=== PATIENT | female | born 1970 | race African-American/Black ===

== ENCOUNTER 2021-09-26 11:37 | Inpatient (IN) ==
[2021-09-26] MEDS ORDERED: ASPIRIN 325 MG TABLET PO STA (15:05)
[2021-09-26] MEDS ORDERED: SODIUM CHLORIDE 0.9% 1,000 ML IV STA (15:05)
[2021-09-26 15:35] LABS: Basophils % 0.3 % (0.0-0.8); Eosinophils % 0.1 % (0.00-10.9); Hematocrit 36.6 VOL% (35.7-47.0); Hemoglobin 12.2 GM/DL (12.0-16.0); Immature Granulocytes % 0.4 %; Immature Granulocytes Absolute 0.03 #; Lymphocytes # 1.5 10*3/uL (1.4-4.0); Lymphocytes % 21.7 % (21.3-54.2); Mean Corpuscular HGB Conc 33.3 GM/DL (32-36); Mean Corpuscular Volume 96.1 FL (87-102); Mean Platelet Volume 11.2 FL (9.6-12.0); Monocytes % 6.6 % (1.7-12.7); Neutrophils % 70.9 % (38.7-73.9); Platelet Count 278 T/CUMM (130-400); Red Blood Count 3.81 MC/CUMM (3.8-5.5); Red Cell Distribution Width 12.9 % (9.3-17.3); White Blood Count 7.1 T/CUMM (4-12)
[2021-09-26 16:01] LABS: Osmolality,Calculated 269.5 MOS/KG (273-304); Potassium 5.6 MMOL/L (3.5-5.1)
[2021-09-26 16:09] LABS: Calcium 17.7 MG/DL (8.5-10.1)
[2021-09-26] MEDS ORDERED: GLUCAGON 1 MG VIAL IM PRN (17:39)
[2021-09-26] MEDS ORDERED: DEXTROSE 10% 250 ML BAG IV PRN (17:39)
[2021-09-26] MEDS ORDERED: SODIUM ZIRCONIUM CYCLOSILICATE 10 GM PACK PO ONE (17:43)
[2021-09-26] MEDS ORDERED: FLUCONAZOLE 200 MG TABLET PO STA (17:50)
[2021-09-26 17:57] LABS: Bilirubin,Urine Negative (Negative); Blood, Urine Small mg/dL (Negative); Glucose,Urine (UA) Negative (Negative); Hyaline Casts,Urine 78 /LPF (0-3); Ketones,Urine 5 mg/dL (Negative); Mucus,Urine Few /LPF (Occasional); Nitrite,Urine Negative (Negative); Protein,Urine 100 MG/DL; RBC,Urine 8 /HPF (0-4); Squamous Epithelial Cell,Urine Many /HPF (0-10); Urine Appearance CLOUDY (Clear); Urine Color Yellow (Yellow); Urine Specific Gravity 1.013 (1.001-1.035); Urine Urobilinogen < 2.0 EU/DL (<2.0)
[2021-09-26] MEDS ORDERED: CALCITONIN 400 UNIT/2 ML VIAL IM SCH (18:00)
[2021-09-26] MEDS: SODIUM CHLORIDE 0.45% 1,000 ML IV SCH (19:31)
[2021-09-26] MEDS ORDERED: HEPARIN 5,000 UNIT/1 ML VIAL SUBCUT SCH (21:00)
[2021-09-26] MEDS: methylPREDNISolone SOD SUC 40 MG/1 ML VIAL IV SCH (21:05)
[2021-09-26] MEDS: cefTRIAXone 1,000 MG in SODIUM CHLORIDE 0.9% 100 ML IV SCH (22:15)
[2021-09-26] MEDS: ENOXAPARIN 80 MG/0.8 ML SYRINGE SUBCUT SCH (22:15)
[2021-09-27 05:49] LABS: Hematocrit 32.2 VOL% (35.7-47.0); Hemoglobin 10.9 GM/DL (12.0-16.0); Immature Granulocytes % 0.5 %; Immature Granulocytes Absolute 0.04 #; Lymphocytes # 0.7 10*3/uL (1.4-4.0); Lymphocytes % 8.5 % (21.3-54.2); Mean Corpuscular HGB Conc 33.9 GM/DL (32-36); Mean Platelet Volume 10.9 FL (9.6-12.0); Monocytes % 0.6 % (1.7-12.7); Neutrophils % 90.4 % (38.7-73.9); Platelet Count 250 T/CUMM (130-400); Red Blood Count 3.39 MC/CUMM (3.8-5.5); Red Cell Distribution Width 13.1 % (9.3-17.3); White Blood Count 7.9 T/CUMM (4-12)
[2021-09-27 06:11] LABS: Alanine Aminotransferase 14 U/L (13-56); Albumin 3.5 G/DL (3.4-5.0); Alkaline Phosphatase 65 U/L (45-117); Aspartate Amino Transferase 15 U/L (0-37); Blood Urea Nitrogen 31 MG/DL (7-18); Carbon Dioxide 22 MMOL/L (21-32); Estimated Glom Filtration Rate 14 ML/MIN; Glucose 139 MG/DL (74-106); Osmolality,Calculated 274.4 MOS/KG (273-304); Potassium 5.1 MMOL/L (3.5-5.1); Sodium 133 MMOL/L (136-145); Thyroid Stimulating Hormone < 0.005 uIU/ml (0.358-3.74)
[2021-09-27 06:17] LABS: Calcium 15.5 MG/DL (8.5-10.1)
[2021-09-27 06:40] LABS: Parathyroid Hormone Intact < 6.3 PG/ML (18.4-80.1)
[2021-09-27] MEDS: hydrALAZINE 10 MG TABLET PO SCH ×2 (10:45→20:40)
[2021-09-27] MEDS: FLUCONAZOLE 200 MG TABLET PO SCH (10:45)
[2021-09-27] MEDS: methylPREDNISolone SOD SUC 40 MG/1 ML VIAL IV SCH ×2 (10:45→20:41)
[2021-09-27] MEDS: CALCITONIN 400 UNIT/2 ML VIAL SUBCUT SCH ×2 (10:46→20:41)
[2021-09-27] MEDS: PANTOPRAZOLE 40 MG TABLET PO SCH (10:47)
[2021-09-27] MEDS: ENOXAPARIN 80 MG/0.8 ML SYRINGE SUBCUT SCH (20:41)
[2021-09-28] MEDS: SODIUM CHLORIDE 0.45% 1,000 ML IV SCH ×3 (00:39→10:43)
[2021-09-28] MEDS ORDERED: cefTRIAXone 1,000 MG VIAL IM ONE (00:58)
[2021-09-28] MEDS: cefTRIAXone 1,000 MG in SODIUM CHLORIDE 0.9% 100 ML IV SCH (00:59)
[2021-09-28 05:37] LABS: Alanine Aminotransferase 14 U/L (13-56); Alkaline Phosphatase 70 U/L (45-117); Aspartate Amino Transferase 13 U/L (0-37); Bilirubin,Total < 0.39 MG/DL (0.20-1.00); Blood Urea Nitrogen 37 MG/DL (7-18); Carbon Dioxide 22 MMOL/L (21-32); Estimated Glom Filtration Rate 16 ML/MIN; Glucose 155 MG/DL (74-106); Potassium 3.8 MMOL/L (3.5-5.1); Sodium 136 MMOL/L (136-145); Total Protein 8.6 G/DL (6.4-8.2)
[2021-09-28 05:40] LABS: Calcium 14.6 MG/DL (8.5-10.1)
[2021-09-28 05:42] LABS: Basophils % 0.1 % (0.0-0.8); Hematocrit 32.8 VOL% (35.7-47.0); Immature Granulocytes Absolute 0.26 #; Lymphocytes # 0.7 10*3/uL (1.4-4.0); Lymphocytes % 2.4 % (21.3-54.2); Mean Corpuscular HGB Conc 36.6 GM/DL (32-36); Mean Platelet Volume 11.8 FL (9.6-12.0); Monocytes % 1.2 % (1.7-12.7); Neutrophils % 95.3 % (38.7-73.9); Platelet Count 292 T/CUMM (130-400); Red Blood Count 3.38 MC/CUMM (3.8-5.5); Red Cell Distribution Width 14.3 % (9.3-17.3)
[2021-09-28 05:55] LABS: Free T4 (Free Thyroxine) 1.25 NG/DL (0.76-1.46)
[2021-09-28 06:08] LABS: White Blood Count 27.1 T/CUMM (4-12)
[2021-09-28 06:16] LABS: Band Neutrophils 1 % (0-10); Hypochromia 1+; Lymphocytes 3 % (20-55); Segmented Neutrophils 94 % (50-85); Total Cells Counted 100
[2021-09-28 06:17] LABS: Microcytosis 1+; Ovalocytes Slight; Platelet Estimate Normal
[2021-09-28] MEDS ORDERED: INFLUENZA VIRUS VACCINE 0.5 ML SYRINGE IM ONE (09:00)
[2021-09-28] MEDS: PANTOPRAZOLE 40 MG TABLET PO SCH (10:45)
[2021-09-28] MEDS: hydrALAZINE 10 MG TABLET PO SCH ×2 (10:45→20:24)
[2021-09-28] MEDS: FLUCONAZOLE 200 MG TABLET PO SCH (10:45)
[2021-09-28] MEDS: CALCITONIN 400 UNIT/2 ML VIAL SUBCUT SCH ×2 (10:46→20:31)
[2021-09-28] MEDS ORDERED: MAGNESIUM CITRATE 300 ML BOTTLE PO ONE (15:48)
[2021-09-28] MEDS: ASPIRIN EC 81 MG TABLET PO SCH (17:10)
[2021-09-28] MEDS: ENOXAPARIN 30 MG/0.3 ML SYRINGE SUBCUT SCH (20:24)
[2021-09-28] MEDS: levETIRAcetam 500 MG TABLET PO SCH (20:24)
[2021-09-28] MEDS: DOCUSATE SODIUM 100 MG CAPSULE PO SCH (20:24)
[2021-09-29 08:12] LABS: Alanine Aminotransferase 13 U/L (13-56); Albumin 3.2 G/DL (3.4-5.0); Alkaline Phosphatase 56 U/L (45-117); Aspartate Amino Transferase 14 U/L (0-37); Bilirubin,Total < 0.39 MG/DL (0.20-1.00); Blood Urea Nitrogen 36 MG/DL (7-18); Calcium 10.8 MG/DL (8.5-10.1); Carbon Dioxide 21 MMOL/L (21-32); Estimated Glom Filtration Rate 22 ML/MIN; Glucose 94 MG/DL (74-106); Osmolality,Calculated 280.8 MOS/KG (273-304); Potassium 3.6 MMOL/L (3.5-5.1); Sodium 137 MMOL/L (136-145); Total Protein 7.1 G/DL (6.4-8.2)
[2021-09-29] MEDS: DOCUSATE SODIUM 100 MG CAPSULE PO SCH ×2 (08:26→20:31)
[2021-09-29] MEDS: PANTOPRAZOLE 40 MG TABLET PO SCH (08:26)
[2021-09-29] MEDS: FLUCONAZOLE 200 MG TABLET PO SCH (08:26)
[2021-09-29] MEDS: hydrALAZINE 10 MG TABLET PO SCH ×2 (08:26→20:31)
[2021-09-29] MEDS: LINACLOTIDE 145 MCG CAPSULE PO SCH (08:26)
[2021-09-29] MEDS: levETIRAcetam 500 MG TABLET PO SCH ×2 (08:26→20:31)
[2021-09-29] MEDS: POLYETHYLENE GLYCOL POWDER 17 GM PACK PO SCH (08:27)
[2021-09-29] MEDS: ASPIRIN EC 81 MG TABLET PO SCH (08:27)
[2021-09-29 12:47] LABS: Hematocrit 26.6 VOL% (35.7-47.0); Mean Corpuscular HGB Conc 37.6 GM/DL (32-36); Mean Corpuscular Volume 98.2 FL (87-102); Platelet Count 223 T/CUMM (130-400); Red Blood Count 2.71 MC/CUMM (3.8-5.5); Red Cell Distribution Width 16.8 % (9.3-17.3); White Blood Count 26.5 T/CUMM (4-12)
[2021-09-29 12:48] LABS: Basophils % 0.1 % (0.0-0.8); Immature Granulocytes % 0.4 %; Lymphocytes # 1.3 10*3/uL (1.4-4.0); Lymphocytes % 4.9 % (21.3-54.2); Mean Platelet Volume 12.5 FL (9.6-12.0); Monocytes % 5.5 % (1.7-12.7); Neutrophils % 89.1 % (38.7-73.9)
[2021-09-29] MEDS ORDERED: CYANOCOBALAMIN 1000 MCG/1 ML VIAL IM ONE (14:50)
[2021-09-29 14:52] LABS: Lymphocytes 3 % (20-55); Segmented Neutrophils 96 % (50-85); Total Cells Counted 100
[2021-09-29 14:53] LABS: Acanthocytes Few; Anisocytosis 1+; Elliptocytes Few
[2021-09-29 14:54] LABS: Burr Cells Few; Platelet Estimate Normal; Schistocytes Slight
[2021-09-29] MEDS: SODIUM CHLORIDE 0.45% 1,000 ML IV SCH (20:32)
[2021-09-29] MEDS: ENOXAPARIN 30 MG/0.3 ML SYRINGE SUBCUT SCH (20:32)
[2021-09-30] MEDS: SODIUM CHLORIDE 0.45% 1,000 ML IV SCH (02:02)
[2021-09-30 06:10] LABS: Hematocrit 27.7 VOL% (35.7-47.0); Hemoglobin 9.3 GM/DL (12.0-16.0); Immature Granulocytes % 0.5 %; Immature Granulocytes Absolute 0.07 #; Lymphocytes # 1.8 10*3/uL (1.4-4.0); Lymphocytes % 13.2 % (21.3-54.2); Mean Corpuscular HGB Conc 33.6 GM/DL (32-36); Mean Corpuscular Volume 92.6 FL (87-102); Mean Platelet Volume 11.5 FL (9.6-12.0); Monocytes % 8.6 % (1.7-12.7); Neutrophils % 77.7 % (38.7-73.9); Platelet Count 206 T/CUMM (130-400); Red Blood Count 2.99 MC/CUMM (3.8-5.5); Red Cell Distribution Width 12.9 % (9.3-17.3); White Blood Count 13.5 T/CUMM (4-12)
[2021-09-30 06:20] LABS: Albumin 3.1 G/DL (3.4-5.0); Bilirubin,Total 0.4 MG/DL (0.20-1.00); Osmolality,Calculated 276.8 MOS/KG (273-304); Potassium 3.1 MMOL/L (3.5-5.1); Total Protein 6.4 G/DL (6.4-8.2)
[2021-09-30] MEDS ORDERED: POTASSIUM CHLORIDE 20 MEQ TABLET PO ONE (09:18)
[2021-09-30] MEDS: hydrALAZINE 10 MG TABLET PO SCH ×2 (09:54→20:18)
[2021-09-30] MEDS: DOCUSATE SODIUM 100 MG CAPSULE PO SCH ×2 (09:54→20:18)
[2021-09-30] MEDS: ASPIRIN EC 81 MG TABLET PO SCH (09:55)
[2021-09-30] MEDS: levETIRAcetam 500 MG TABLET PO SCH ×2 (09:55→20:18)
[2021-09-30] MEDS: PANTOPRAZOLE 40 MG TABLET PO SCH (09:55)
[2021-09-30] MEDS: MAGNESIUM OXIDE 400 MG TABLET PO SCH (09:55)
[2021-09-30] MEDS: LINACLOTIDE 145 MCG CAPSULE PO SCH (09:59)
[2021-09-30] MEDS: POLYETHYLENE GLYCOL POWDER 17 GM PACK PO SCH (10:01)
[2021-09-30] MEDS: CALCIUM (CARBONATE) 500 MG TABLET PO SCH (20:17)
[2021-09-30] MEDS: ENOXAPARIN 30 MG/0.3 ML SYRINGE SUBCUT SCH (20:18)
[2021-10-01] MEDS: SODIUM CHLORIDE 0.45% 1,000 ML IV SCH ×5 (01:12→20:32)
[2021-10-01 06:21] LABS: Basophils % 0.1 % (0.0-0.8); Hemoglobin 9.7 GM/DL (12.0-16.0); Immature Granulocytes % 0.3 %; Immature Granulocytes Absolute 0.03 #; Lymphocytes # 2.1 10*3/uL (1.4-4.0); Lymphocytes % 21.5 % (21.3-54.2); Mean Corpuscular HGB Conc 34.6 GM/DL (32-36); Mean Corpuscular Volume 91.5 FL (87-102); Mean Platelet Volume 11.2 FL (9.6-12.0); Monocytes % 10.3 % (1.7-12.7); Neutrophils % 67.8 % (38.7-73.9); Platelet Count 200 T/CUMM (130-400); Red Blood Count 3.06 MC/CUMM (3.8-5.5); Red Cell Distribution Width 12.8 % (9.3-17.3); White Blood Count 9.8 T/CUMM (4-12)
[2021-10-01 06:30] LABS: Albumin 3.1 G/DL (3.4-5.0); Bilirubin,Total 0.5 MG/DL (0.20-1.00); Calcium 9.2 MG/DL (8.5-10.1); Osmolality,Calculated 272.8 MOS/KG (273-304); Potassium 2.9 MMOL/L (3.5-5.1); Total Protein 6.4 G/DL (6.4-8.2)
[2021-10-01] MEDS: POLYETHYLENE GLYCOL POWDER 17 GM PACK PO SCH (09:24)
[2021-10-01] MEDS: POTASSIUM CHLORIDE 20 MEQ TABLET PO SCH (09:25)
[2021-10-01] MEDS: hydrALAZINE 10 MG TABLET PO SCH ×2 (09:25→20:33)
[2021-10-01] MEDS: MAGNESIUM OXIDE 400 MG TABLET PO SCH (09:25)
[2021-10-01] MEDS: levETIRAcetam 500 MG TABLET PO SCH ×2 (09:25→20:33)
[2021-10-01] MEDS: CALCIUM (CARBONATE) 500 MG TABLET PO SCH ×2 (09:25→20:33)
[2021-10-01] MEDS: DOCUSATE SODIUM 100 MG CAPSULE PO SCH ×2 (09:25→20:34)
[2021-10-01] MEDS: LINACLOTIDE 145 MCG CAPSULE PO SCH (09:25)
[2021-10-01] MEDS: ASPIRIN EC 81 MG TABLET PO SCH (09:25)
[2021-10-01] MEDS: PANTOPRAZOLE 40 MG TABLET PO SCH (09:25)
[2021-10-01] MEDS ORDERED: POTASSIUM CHLORIDE 20 MEQ TABLET PO ONE (15:00)
[2021-10-01 18:29] LABS: AFP Tumor < 2.2 NG/ML (0-8); Cancer Antigen 19-9 < 1.20 U/ML (0-35)
[2021-10-01] MEDS: ENOXAPARIN 30 MG/0.3 ML SYRINGE SUBCUT SCH (20:33)
[2021-10-02 05:49] LABS: Basophils % 0.2 % (0.0-0.8); Hematocrit 29.9 VOL% (35.7-47.0); Hemoglobin 10.1 GM/DL (12.0-16.0); Immature Granulocytes % 0.5 %; Immature Granulocytes Absolute 0.05 #; Lymphocytes # 1.8 10*3/uL (1.4-4.0); Lymphocytes % 16.3 % (21.3-54.2); Mean Corpuscular HGB Conc 33.8 GM/DL (32-36); Mean Corpuscular Volume 90.1 FL (87-102); Mean Platelet Volume 11.1 FL (9.6-12.0); Platelet Count 210 T/CUMM (130-400); Red Blood Count 3.32 MC/CUMM (3.8-5.5); White Blood Count 11.1 T/CUMM (4-12)
[2021-10-02 06:14] LABS: Osmolality,Calculated 271.8 MOS/KG (273-304); Potassium 3.1 MMOL/L (3.5-5.1)
[2021-10-02 06:18] LABS: Albumin 3.2 G/DL (3.4-5.0); Bilirubin,Total 0.4 MG/DL (0.20-1.00); Calcium 9.2 MG/DL (8.5-10.1); Osmolality,Calculated 271.8 MOS/KG (273-304); Total Protein 6.7 G/DL (6.4-8.2)
[2021-10-02] MEDS ORDERED: LEVOTHYROXINE 100 MCG TABLET PO SCH (06:30)
[2021-10-02] MEDS ORDERED: LEVOTHYROXINE 125 MCG TABLET PO SCH (07:00)
[2021-10-02] MEDS: SODIUM CHLORIDE 0.45% 1,000 ML IV SCH (08:23)
[2021-10-02] MEDS: POTASSIUM CHLORIDE 20 MEQ TABLET PO SCH (08:59)
[2021-10-02] MEDS: DOCUSATE SODIUM 100 MG CAPSULE PO SCH (08:59)
[2021-10-02] MEDS: LINACLOTIDE 145 MCG CAPSULE PO SCH (08:59)
[2021-10-02] MEDS: levETIRAcetam 500 MG TABLET PO SCH (08:59)
[2021-10-02] MEDS: ASPIRIN EC 81 MG TABLET PO SCH (08:59)
[2021-10-02] MEDS: MAGNESIUM OXIDE 400 MG TABLET PO SCH (08:59)
[2021-10-02] MEDS: hydrALAZINE 10 MG TABLET PO SCH (08:59)
[2021-10-02] MEDS ORDERED: FAMOTIDINE 20 MG TABLET PO SCH (09:00)
[2021-10-02] MEDS ORDERED: LOSARTAN 25 MG TABLET PO SCH (09:00)
[2021-10-02] MEDS ORDERED: cloNIDine 0.1 MG TABLET PO SCH (09:00)
[2021-10-02] MEDS ORDERED: SERTRALINE 50 MG TABLET PO SCH (09:00)
[2021-10-02] MEDS: CALCIUM (CARBONATE) 500 MG TABLET PO SCH (09:00)
[2021-10-02] MEDS: POLYETHYLENE GLYCOL POWDER 17 GM PACK PO SCH (09:00)
[2021-10-02] MEDS ORDERED: POTASSIUM CHLORIDE 10 MEQ TABLET PO ONE (11:00)
[2021-10-02] MEDS ORDERED: MAGNESIUM SULF RIDER 2 GM/50 ML PREMIX IV ONE (11:00)
[2021-10-02 11:27] VITALS: BP 125/65
[2021-10-02 13:16] LABS: % Iron Saturation 26.1 % (18-50)
[2021-10-02 13:21] LABS: Folate 5.28 NG/ML (5.38-24.0); Vitamin B12 > 2000 PG/ML (211-911)
== END 2021-10-02 15:05 | disposition home or self-care (01) | DRG 640 ==
LOC: N.ED 11:37 → SUATTDRO 17:36 → N.EDINP 17:36 → N.5E 19:29
PROVIDERS: ADMIT Hospitalist; ATTEND Internal Medicine